=== PATIENT | male | born 1945 | race Caucasian/White ===

== ENCOUNTER 2017-05-07 11:06 | Emergency (ER) | payer OTHER, MEDICARE ==
[~2017-05-07] VITALS: Ht 180.3 cm; Wt 96.2 kg
[~2017-05-07 11:06] MED LIST: ALBU90OI6; ALBU90OI6 INH; AMIO200 PO; AMLO5 PO; ASPI325 PO; ASPI81CH; ASPI81CH PO; ATEN50 PO; Aspir 8181 MG PO; Augmentin 875-1 EACH PO; CARI350 PO; CLOP75 PO; DIAZ5 PO; ELIQUIS2.5 MG PO; FINA5 PO; FURO40 PO; HYDACE5 PO; HYDMOR2 PO; IBUP600 PO; IBUP800 PO; ISOMON20 PO; Isosorbide Mono60 MG PO; LACT10SY PO; LISI20 PO; LORA1 PO; LOSA25 PO; MECL25 PO; METO25ER PO; METO50 PO; MORP60ER; MORP60ER PO; NEBI10 PO; NITR.4SL SL; ONDA4ODT MM; OXYACE10 PO; POTCHL10ER PO; PRED20 PO; PREDNISONE PO; PROPRANOLOL; RANI150 PO; SIMV10 PO; SIMV40 PO; SUMA25 PO; VERA120 PO; VERA240ER PO; VERAPAMIL ER120 MG PO; XARELTO1 EACH PO; XARELTO20 MG PO; ZOLP5 PO
[2017-05-07 12:06] LABS: BASOPHILS ABSOLUTE AUTO 0.04 K/mm3 (0.00-0.23); BASOPHILS PERCENT AUTO 0 % (0-2); EOSINOPHILS ABSOLUTE AUTO 0.02 K/mm3 (0.00-0.68); EOSINOPHILS PERCENT AUTO 0 % (0-6); Hematocrit 43.3 % (37.0-53.0); Hemoglobin 14.3 g/dL (13.5-17.5); IMMATURE GRAN ABSOLUTE AUTO 0.02 K/mm3 (0.00-0.10); IMMATURE GRAN PERCENT AUTO 0 % (0-1); LYMPHOCYTES ABSOLUTE AUTO 1.23 K/mm3 (0.84-5.20); LYMPHOCYTES PERCENT AUTO 12 % (21-46); MONOCYTES ABSOLUTE AUTO 1.17 K/mm3 (0.16-1.47); MONOCYTES PERCENT AUTO 11 % (4-13); Mean Corpuscular HGB 30.4 pg (26.0-34.0); Mean Corpuscular Volume 92 fL (80-100); Mean Platelet Volume 10.6 fL (9.1-12.4); NEUTROPHILS ABSOLUTE AUTO 7.92 K/mm3 (1.96-9.15); NEUTROPHILS PERCENT AUTO 76 % (41-73); Platelet Count 142 K/mm3 (150-400); RDW Coefficient Variation 14.3 % (11.7-14.2); RDW Standard Deviation 48.8 fL (35.1-46.3)
[2017-05-07 12:12] LABS: Alanine Aminotransfer (ALT/SGP 25 U/L (12-78); Albumin, Blood 3.6 g/dL (3.4-5.0); Albumin/Globulin Ratio 0.8 (0.8-1.8); Alk Phos 95 U/L (50-136); Anion Gap 10 mmol/L (6-16); Aspartate Aminotrans (AST/SGOT 22 U/L (12-37); Blood Urea Nitrogen 22 mg/dL (8-24); Bun/Creatinine Ratio 15.5 (12.0-20.0); CO2, Blood 25 mmol/L (21-32); Calcium, Blood 8.9 mg/dL (8.5-10.1); Chloride, Blood 106 mmol/L (98-108); Creatinine, Blood 1.42 mg/dL (0.60-1.20); Globulin, Blood 4.6 g/dL (2.2-4.0); Glomerular Filtration Rate 52 (60-); Glucose, Blood 115 mg/dL (70-99); Potassium, Blood 3.9 mmol/L (3.5-5.5); Sodium, Blood 141 mmol/L (136-145); Total Protein, Blood 8.2 g/dL (6.4-8.2)
[2017-05-07] MEDS ORDERED: MORP60ER PO (12:23)
[2017-05-07 12:39] LABS: Source, Urine Clean Catch
[2017-05-07 12:46] LABS: Bilirubin, Urine Neg (Neg); Blood, Urine Neg (Neg); Glucose Qualitative, Urine Neg (Neg); Ketones, Urine Neg (Neg); Leukocyte Esterase, Urine Neg (Neg); Nitrite, Urine Neg (Neg); Protein, Urine 2+ (Neg); Specific Gravity, Urine 1.005 (1.003-1.022); Urobilinogen, Urine NORM (Normal)
[2017-05-07 12:50] LABS: Troponin I <0.015 ng/mL (0.000-0.040)
[2017-05-07 13:14] LABS: Appearance, Urine Clear (Clear); Color, Urine Pale Yellow (P-Yellow)
[2017-05-07 13:15] LABS: White Blood Cells, Urine 0-2 /hpf (0-5)
[2017-05-07 13:16] LABS: Bacteria Few /hpf; Squamous Epithelial Cells Not Seen /hpf (Few)
[2017-05-07] MEDS ORDERED: Norco 5-325 Ta1 EACH PO (14:03)
== END 2017-05-07 14:24 | disposition home or self-care (01) ==
LOC: ER 11:06
PROVIDERS: Emergency Medicine
DX: I50.9 Heart failure, unspecified (principal); R51 Headache; Z88.5 Allergy status to narcotic agent; Z91.030 Bee allergy status; Z88.8 Allergy status to other drugs, medicaments and biological substances; Z79.899 Other long term (current) drug therapy; Z79.82 Long term (current) use of aspirin; Z87.01 Personal history of pneumonia (recurrent); I48.91 Unspecified atrial fibrillation; Z87.891 Personal history of nicotine dependence
CPT/HCPCS: 36415; 70450; 71046; 80053; 81001; 83880; 84484; 85025; 93005; 93010; 99284

== ENCOUNTER 2018-06-08 19:11 | Inpatient (IN) | payer MEDICARE ==
[~2018-06-08] VITALS: Ht 180.3 cm; Wt 87.5 kg
[~2018-06-08 19:11] MED LIST changes: +Norco 5-325 Ta1 EACH PO
[2018-06-08 19:31] LABS: BASOPHILS ABSOLUTE AUTO 0.02 K/mm3 (0.00-0.23); BASOPHILS PERCENT AUTO 0 % (0-2); EOSINOPHILS ABSOLUTE AUTO 0.06 K/mm3 (0.00-0.68); EOSINOPHILS PERCENT AUTO 1 % (0-6); Hematocrit 48.6 % (37.0-53.0); Hemoglobin 16.1 g/dL (13.5-17.5); IMMATURE GRAN ABSOLUTE AUTO 0.02 K/mm3 (0.00-0.10); IMMATURE GRAN PERCENT AUTO 0 % (0-1); LYMPHOCYTES ABSOLUTE AUTO 1.74 K/mm3 (0.84-5.20); LYMPHOCYTES PERCENT AUTO 34 % (21-46); MONOCYTES ABSOLUTE AUTO 0.88 K/mm3 (0.16-1.47); MONOCYTES PERCENT AUTO 17 % (4-13); Mean Corpuscular HGB 30.8 pg (26.0-34.0); Mean Corpuscular HGB Conc 33.1 g/dL (31.5-36.5); Mean Corpuscular Volume 93 fL (80-100); Mean Platelet Volume 10.7 fL (9.1-12.4); NEUTROPHILS ABSOLUTE AUTO 2.37 K/mm3 (1.96-9.15); NEUTROPHILS PERCENT AUTO 47 % (41-73); Platelet Count 124 K/mm3 (150-400); RDW Coefficient Variation 13.9 % (11.7-14.2); RDW Standard Deviation 47.8 fL (35.1-46.3); Red Blood Cell Count 5.22 M/mm3 (4.30-5.90); White Blood Cell Count 5.09 K/mm3 (4.00-11.30)
[2018-06-08 19:44] LABS: International Normalized Ratio 1.03; Prothrombin Time Results 10.9 Sec (9.7-11.5)
[2018-06-08 19:56] LABS: Alanine Aminotransfer (ALT/SGP 29 U/L (12-78); Albumin/Globulin Ratio 0.8 (0.8-1.8); Alk Phos 86 U/L (50-136); Anion Gap 5 mmol/L (6-16); Aspartate Aminotrans (AST/SGOT 25 U/L (12-37); Bilirubin, Total 0.5 mg/dL (0.1-1.0); Blood Urea Nitrogen 36 mg/dL (8-24); CO2, Blood 27 mmol/L (21-32); Calcium, Blood 8.2 mg/dL (8.5-10.1); Chloride, Blood 108 mmol/L (98-108); Ethanol (Alcohol), Blood, Med <3 mg/dL; Glomerular Filtration Rate 40 (60-); Glucose, Blood 110 mg/dL (70-99); Potassium, Blood 4.6 mmol/L (3.5-5.5); Sodium, Blood 140 mmol/L (136-145)
[2018-06-08] MEDS ORDERED: ALBU90OI61 INH (21:05)
[2018-06-08] MEDS ORDERED: AMLO5 PO (21:07)
[2018-06-08] MEDS ORDERED: BENZ100A PO (21:08)
[2018-06-08] MEDS ORDERED: CARV6.25 PO (21:09)
[2018-06-08] MEDS ORDERED: CHOL10002 PO (21:10)
[2018-06-08] MEDS ORDERED: LOSA25 PO (21:11)
[2018-06-08] MEDS ORDERED: MORP15ER PO ×2 (21:12)
[2018-06-08] MEDS ORDERED: Zocor20 MG PO (21:14)
[2018-06-08] MEDS ORDERED: OSELTAMIVIR PHO30 MG PO (21:14)
[2018-06-08] MEDS ORDERED: SILD50TA PO (21:15)
[2018-06-08] MEDS ORDERED: ELIQUIS5 MG PO (21:29)
[2018-06-09 00:57] LABS: Influenza A Negative (NEGATIVE); Influenza B Negative (NEGATIVE)
--- NOTE | 2018-06-09 01:21 | NUR ---
06/08/18 0040 REPORT GIVEN TO ELENA PERRY, [facility]. PT TO BE TRANSFERRED JC. PT AND FAMILY NOTIFIED BY DR SAINI OF TRANSFER. DR JAMISON AT BEDSIDE AND NOTIFIED OF HYPERTENSION. "OKAY LONG IT IS LESS THAN 220 SYSTOLIC."
--- NOTE | 2018-06-09 01:25 | NUR ---
UNABLE TO LIFEFLIGHT OUT DUE TO WEATHER. PT IS BE TRANSFERED BY [facility] [address] SA[address].
--- NOTE | 2018-06-09 01:49 | NUR ---
CALLED [facility] TO REPORT PT LEFT BY [facility] AT 0150.
--- NOTE | 2018-06-09 02:52 | NUR ---
06/09/18 0150 PT STARTED ON HEPARIN AND CARDIZEM DRIP BY SHIVANI PERRY FROM ER. SEE MAR. [facility] HERE AND REPORT GIVEN. PT LEFT [facility] AT 0150. ALL BELONGINGS WITH HIM.
== END 2018-06-09 01:48 | disposition short-term general hospital (02) | DRG 65 ==
LOC: ER 19:11 → MEDS 21:45
PROVIDERS: Emergency Medicine; Nurse Practitioner Acute Care; ADMIT Internal Medicine
DX: I63.231 Cerebral infarction due to unspecified occlusion or stenosis of right carotid arteries (principal); I50.22 Chronic systolic (congestive) heart failure; Z87.891 Personal history of nicotine dependence; R40.2412 Glasgow coma scale score 13-15, at arrival to emergency department; R20.0 Anesthesia of skin; I48.2 Chronic atrial fibrillation; J44.9 Chronic obstructive pulmonary disease, unspecified; I25.10 Atherosclerotic heart disease of native coronary artery without angina pectoris; N40.0 Benign prostatic hyperplasia without lower urinary tract symptoms; Z85.51 Personal history of malignant neoplasm of bladder; K21.9 Gastro-esophageal reflux disease without esophagitis; F20.9 Schizophrenia, unspecified; J10.1 Influenza due to other identified influenza virus with other respiratory manifestations
CPT/HCPCS: 36415; 70450; 70496; 70498; 71045; 80053; 82947; 83880; 84145; 85025; 85610; 85730; 87804; 93005; 93010; 96360-59; 99285-25; G0480; J1644; J7030; J7050; Q9967

== ENCOUNTER 2018-06-21 13:17 | Observation (INO) | payer MEDICARE ==
[~2018-06-21] VITALS: Ht 180.3 cm; Wt 87.2 kg
[~2018-06-21 13:17] MED LIST changes: +ELIQUIS5 MG PO; -FINA5 PO; +MORP15ER PO; +OSELTAMIVIR PHO30 MG PO; +SILD50TA PO; +Zocor20 MG PO
[2018-06-21 14:17] LABS: BASOPHILS ABSOLUTE AUTO 0.06 K/mm3 (0.00-0.23); BASOPHILS PERCENT AUTO 1 % (0-2); EOSINOPHILS PERCENT AUTO 2 % (0-6); Hematocrit 38.6 % (37.0-53.0); Hemoglobin 12.4 g/dL (13.5-17.5); IMMATURE GRAN ABSOLUTE AUTO 0.03 K/mm3 (0.00-0.10); IMMATURE GRAN PERCENT AUTO 0 % (0-1); LYMPHOCYTES ABSOLUTE AUTO 1.23 K/mm3 (0.84-5.20); LYMPHOCYTES PERCENT AUTO 18 % (21-46); MONOCYTES ABSOLUTE AUTO 0.72 K/mm3 (0.16-1.47); MONOCYTES PERCENT AUTO 11 % (4-13); Mean Corpuscular HGB 30.5 pg (26.0-34.0); Mean Corpuscular HGB Conc 32.1 g/dL (31.5-36.5); Mean Corpuscular Volume 95 fL (80-100); Mean Platelet Volume 10.6 fL (9.1-12.4); NEUTROPHILS ABSOLUTE AUTO 4.53 K/mm3 (1.96-9.15); NEUTROPHILS PERCENT AUTO 68 % (41-73); Platelet Count 192 K/mm3 (150-400); RDW Coefficient Variation 13.3 % (11.7-14.2); RDW Standard Deviation 46.6 fL (35.1-46.3); Red Blood Cell Count 4.07 M/mm3 (4.30-5.90); White Blood Cell Count 6.67 K/mm3 (4.00-11.30)
[2018-06-21 14:22] LABS: Alanine Aminotransfer (ALT/SGP 29 U/L (12-78); Albumin, Blood 2.7 g/dL (3.4-5.0); Albumin/Globulin Ratio 0.6 (0.8-1.8); Alk Phos 124 U/L (50-136); Anion Gap 7 mmol/L (6-16); Aspartate Aminotrans (AST/SGOT 23 U/L (12-37); Bilirubin, Total 0.8 mg/dL (0.1-1.0); Blood Urea Nitrogen 18 mg/dL (8-24); Bun/Creatinine Ratio 13.4 (12.0-20.0); CO2, Blood 25 mmol/L (21-32); Calcium, Blood 8.7 mg/dL (8.5-10.1); Chloride, Blood 108 mmol/L (98-108); Creatinine, Blood 1.34 mg/dL (0.60-1.20); Globulin, Blood 4.5 g/dL (2.2-4.0); Glomerular Filtration Rate 56 (60-); Glucose, Blood 148 mg/dL (70-99); Potassium, Blood 4.1 mmol/L (3.5-5.5); Sodium, Blood 140 mmol/L (136-145); Total Protein, Blood 7.2 g/dL (6.4-8.2); Troponin I <0.015 ng/mL (0.000-0.040)
[2018-06-21 14:27] LABS: International Normalized Ratio 1.08; Prothrombin Time Results 11.4 Sec (9.7-11.5)
[2018-06-21] MEDS ORDERED: FINA5 PO (16:48)
[2018-06-21] MEDS ORDERED: ALBU90OI61 INH (16:52)
[2018-06-21] MEDS ORDERED: Amlodipine Bes2.5 MG PO (16:53)
[2018-06-21] MEDS ORDERED: GERI-HYDROLAC222 M1 TOP (16:54)
[2018-06-21] MEDS ORDERED: Aspirin EC325 MG PO (16:56)
[2018-06-21] MEDS ORDERED: ATOR40TA PO (16:57)
[2018-06-21] MEDS ORDERED: CARV6.25 PO (16:58)
[2018-06-21] MEDS ORDERED: CHOL10002 PO (16:58)
[2018-06-21] MEDS ORDERED: LOSA25 PO (16:59)
[2018-06-21] MEDS ORDERED: SILDENAFIL CIT100 MG PO (17:00)
[2018-06-21] MEDS ORDERED: MORP15ER PO (17:01)
[2018-06-21] MEDS ORDERED: BENZ100A PO (17:24)
[2018-06-21] MEDS ORDERED: CLOP75 PO (17:25)
[2018-06-21] MEDS ORDERED: SUCR1 PO (17:26)
[2018-06-21] MEDS ORDERED: ATEN50 PO (17:26)
[2018-06-21] MEDS ORDERED: Isosorbide Mono60 MG PO (17:27)
--- NOTE | 2018-06-21 17:32 | NUR ---
Initial Visit: Palliative Care Consult for Advanced Care Planning. Pt is A&Ox4 and reports 3/10 pain on the right side of his head. He reports at times the pain is unbearable. Pt denies dyspnea and anxiety at this time. Pt does report moderate dyspnea during coughing spells. Pt also reports intermittent nausea but denies currently. Pt's and daughter are present during visit. Engaged in therapeutic conversation regarding advanced care planning. Pt reports that he lives at home with his . He reports no gnosticism beliefs. Pt's daughter lives close by and he reports adequate support between his and daughter. Pt reports he has been feeling weak and has not been out of bed for the last week. He has been feeling dizzy and has ringing in his right ear. Encouraged Pt to discuss symptoms with Dr on a daily basis as long as they are occuring. Educated Pt and family on the importance of advanced care planning including have discussion with his PCP on a routine basis. Educated Pt and family on disease process of CHF, COPD, and kidney disease. Encouraged Pt to ask questions to PCP regarding his disease trajctory. Educated Pt and family on the importance of being proactive and knowing if and when a higher level of care needs to be considered. Educated Pt and family on advance directive. Pt and family report they will consider wishes and complete at a later date. No other concerns reported at this time. Pt being transfered to medical floor and this RN ended visit. Plan: Will F/U for disease management and symptom management. Will place social service consult. Pt marte benefit from home health. Pt at high risk for readmission due to multiple comorbidities. Pt may benefit from high risk readmission program for CHF and COPD.
[2018-06-22] MEDS ORDERED: LISI5 PO (14:16)
--- NOTE | 2018-06-22 15:56 | NUR ---
1555 PT DISHCARGED HOME VIA PERSONAL VEHICLE ACCOMPANIED AND DRIVEN BY . PT ESCORTED TO FACILITY ENTRANCE VIA W/C BY ENTERPRISE APPLICATION ANALYST. IV REMOVED. D/C PAPERWORK REVIEWED WITH PT AND COPY PROVIDED. NEW RX FAXED TO [facility] PER PT REQUEST. PT REPORTS L SIDED WEAKNESS IS AT BASELINE. HTN BETTER CONTROLLED TODAY. PT DENIES PAIN, SOB, N/V. NO NEW CHANGES.
== END 2018-06-22 17:03 | disposition home or self-care (01) ==
LOC: ER 13:17 → MEDS 13:18
PROVIDERS: Emergency Medicine; ADMIT Hospitalist
DX: I63.9 Cerebral infarction, unspecified (principal); I25.10 Atherosclerotic heart disease of native coronary artery without angina pectoris; I48.91 Unspecified atrial fibrillation; G89.29 Other chronic pain; I16.0 Hypertensive urgency; I13.0 Hypertensive heart and chronic kidney disease with heart failure and stage 1 through stage 4 chronic kidney disease, or unspecified chronic kidney disease; N18.3 Chronic kidney disease, stage 3 (moderate); I50.22 Chronic systolic (congestive) heart failure; J44.9 Chronic obstructive pulmonary disease, unspecified; F20.9 Schizophrenia, unspecified; K21.9 Gastro-esophageal reflux disease without esophagitis; Z87.891 Personal history of nicotine dependence; Z79.899 Other long term (current) drug therapy; Z88.5 Allergy status to narcotic agent; Z88.8 Allergy status to other drugs, medicaments and biological substances
CPT/HCPCS: 36415; 70450; 70496; 80053; 83036; 84484; 85025; 85610; 85730; 93005; 93010; 96374-59; 97116; 97162; 97165; 97530; 99285-25; G0378; J0360; Q9967

== ENCOUNTER 2018-10-04 09:47 | Day surgery (SDC) | payer OTHER, MEDICARE ==
[~2018-10-04] VITALS: Ht 180.3 cm; Wt 93.0 kg
[~2018-10-04 09:47] MED LIST changes: +ALBU90OI61 INH; +ATOR40TA PO; +Amlodipine Bes2.5 MG PO; +Aspirin EC81 MG PO; +BENZ100A PO; +CARV6.25 PO; +CHOL10002 PO; +FINA5 PO; +GERI-HYDROLAC222 M1 TOP; +LISI5 PO; +SILDENAFIL CIT100 MG PO; +SUCR1 PO
[2018-10-04] MEDS ORDERED: ISOMON20 (10:17)
[2018-10-04] MEDS ORDERED: RANO500T PO (10:18)
[2018-10-04] MEDS ORDERED: AMLO5 (10:44)
[2018-10-04] MEDS ORDERED: NITR.4SL (10:45)
[2018-10-04] MEDS ORDERED: PANT40 PO (14:12)
--- NOTE | 2018-10-04 16:37 | NUR ---
SHIFT SUMMARY 1330 PT ARRIVED FROM [facility]. ALERT AND ORIENTED X3. DENIES PAIN THROUGHOUT THE SHIFT. RIGHT WRIST SOFT, NO BLEED OR HEMATOMA, TR BAND AND ARMBOARD CDI. VSS, SLIGHT HYPERTENSION NOTED. WILL CONTINUE TO MONITOR. FAMILY AT BEDSIDE.
--- NOTE | 2018-10-04 19:30 | NUR ---
ASSUMED CARE PT CARE ASSUMED AT APPROX 1930. PT IS AOX4, VSS. R RADIAL SITE WITH TR BAND IN PLACE AND CURRENTLY INFLATED WITH 6 CC OF AIR. SCANT AMOUNT OF DRY, RED DRAINAGE NOTED UNDER BAND. NO BRUISING, HEMATOMA, OR SWELLING NOTED TO AREA, PT DENIES PAIN ON PALPATION OF FOREARM. PT DENIES CHEST PAIN OR DYSPNEA. REPORTS FEELING MUCH BETTER THIS EVENING. BED IN LOWEST POSITION, CALL LIGHT IN REACH. WILL CONTINUE WITH MONITORING.
--- NOTE | 2018-10-05 06:54 | NUR ---
SHIFT SUMMARY PT HAS REMAINED AOX4 THROUHGOUT SHIFT. VSS. PLEASANT AND COOPERATIVE WITH CARE. PT HAS RESTED THROUGHOUT MUCH OF THE NIGHT. NO CHANGES NOTED TO R RADIAL SITE. PT DENIES CHEST PAIN AND DYSPNEA. PT REMAINS INDEPENDENT IN ROOM. EDUCATION PROVIDED ON POST PROCEDURE CARE OF R FOREARM AND ARM BOARD USAGE. NO OTHER CHANGES NOTED FROM INITIAL ASSESSMENT. WILL CONTINUE TO MONITOR AND REPORT TO ONCOMING SHIFT. BED IN LOW POSITION. CALL LIGHT IN REACH.
--- NOTE | 2018-10-05 09:30 | NUR ---
AM NOTE. ASSUMED CARE OF PT APROX 0700, PT IS A&Ox4 AND IND IN THE ROOM. PT IS S/P ANGIO WITH STENT PLACEMENT. PT DENIES CP OR SOB AT THIS TIME. RIGHT WRIST SITE IS C/D/I. VS STABLE.
--- NOTE | 2018-10-05 10:02 | NUR ---
PT D/C. PT WAS D/C'D HOME WITH ALL BELONGINGS. D/C EDUCATION AND INSTRUCTION WERE GIVEN TO THE PT AND HIS . NO NEW MEDICATIONS WERE ORDERED FOR THIS PT. PT'S RIGHT WRIST SITE WAS C/D/I, NO SWELLING, REDNESS OR HEMATOMA NOTED. PT DENIED CHEST PAIN/PRESSURE, N/V OR SOB. PT REFUSED W/C ESCORT OUT. PT'S IV WAS D/C'D WNL.
== END 2018-10-05 10:03 | disposition home or self-care (01) ==
LOC: MHTC 09:47 → PCU 13:00 → MHTC 13:31 → PCU 13:31 → MHTC 10-05 10:03 → PCU 10-05 10:03
PROC: 4A023N7 Measurement of Cardiac Sampling and Pressure, Left Heart, Percutaneous Approach (ICD-10-PCS; principal; 2018-10-04)
PROC: 027034Z Dilation of Coronary Artery, One Artery with Drug-eluting Intraluminal Device, Percutaneous Approach (ICD-10-PCS; principal; 2018-10-04)
PROC: B2111ZZ Fluoroscopy of Multiple Coronary Arteries using Low Osmolar Contrast (ICD-10-PCS; principal; 2018-10-04)
PROC: B240ZZ3 Ultrasonography of Single Coronary Artery, Intravascular (ICD-10-PCS; principal; 2018-10-04)
DX: I25.10 Atherosclerotic heart disease of native coronary artery without angina pectoris (principal); I48.1 Persistent atrial fibrillation; I69.354 Hemiplegia and hemiparesis following cerebral infarction affecting left non-dominant side; I10 Essential (primary) hypertension; J44.9 Chronic obstructive pulmonary disease, unspecified; E78.5 Hyperlipidemia, unspecified; I87.2 Venous insufficiency (chronic) (peripheral); C67.9 Malignant neoplasm of bladder, unspecified; I12.9 Hypertensive chronic kidney disease with stage 1 through stage 4 chronic kidney disease, or unspecified chronic kidney disease; N18.9 Chronic kidney disease, unspecified; M19.90 Unspecified osteoarthritis, unspecified site; Z95.5 Presence of coronary angioplasty implant and graft; Z79.899 Other long term (current) drug therapy; Z79.82 Long term (current) use of aspirin; Z87.891 Personal history of nicotine dependence; Z88.5 Allergy status to narcotic agent; Z88.8 Allergy status to other drugs, medicaments and biological substances
CPT/HCPCS: 85347; 92921; 92978; 93458; 94760; 99152; 99153; C1725; C1753; C1769; C1874; C1887; C1894; C9600; J1644; J2250; J3010; J7030; Q9967

== ENCOUNTER 2019-01-05 12:34 | Inpatient (IN) | payer OTHER, MEDICARE ==
[~2019-01-05] VITALS: Ht 180.3 cm; Wt 87.5 kg
[~2019-01-05 12:34] MED LIST changes: +AMLO5; +ISOMON20; +PANT40 PO; +RANO500T PO
[2019-01-05 13:02] LABS: BASOPHILS ABSOLUTE AUTO 0.04 K/mm3 (0.00-0.23); BASOPHILS PERCENT AUTO 1 % (0-2); EOSINOPHILS PERCENT AUTO 3 % (0-6); Hematocrit 44.2 % (37.0-53.0); Hemoglobin 14.4 g/dL (13.5-17.5); IMMATURE GRAN ABSOLUTE AUTO 0.03 K/mm3 (0.00-0.10); IMMATURE GRAN PERCENT AUTO 0 % (0-1); LYMPHOCYTES ABSOLUTE AUTO 1.04 K/mm3 (0.84-5.20); LYMPHOCYTES PERCENT AUTO 15 % (21-46); MONOCYTES ABSOLUTE AUTO 0.81 K/mm3 (0.16-1.47); MONOCYTES PERCENT AUTO 12 % (4-13); Mean Corpuscular HGB Conc 32.6 g/dL (31.5-36.5); Mean Corpuscular Volume 92 fL (80-100); Mean Platelet Volume 10.6 fL (9.1-12.4); NEUTROPHILS ABSOLUTE AUTO 4.75 K/mm3 (1.96-9.15); NEUTROPHILS PERCENT AUTO 69 % (41-73); Platelet Count 156 K/mm3 (150-400); RDW Coefficient Variation 14.9 % (11.7-14.2); RDW Standard Deviation 50.8 fL (35.1-46.3); White Blood Cell Count 6.87 K/mm3 (4.00-11.30)
[2019-01-05 13:13] LABS: Alanine Aminotransfer (ALT/SGP 36 U/L (12-78); Albumin, Blood 2.9 g/dL (3.4-5.0); Albumin/Globulin Ratio 0.6 (0.8-1.8); Alk Phos 103 U/L (50-136); Anion Gap 7 mmol/L (6-16); Aspartate Aminotrans (AST/SGOT 22 U/L (12-37); Bilirubin, Total 0.8 mg/dL (0.1-1.0); Blood Urea Nitrogen 24 mg/dL (8-24); CO2, Blood 26 mmol/L (21-32); Calcium, Blood 9.1 mg/dL (8.5-10.1); Chloride, Blood 107 mmol/L (98-108); Ethanol (Alcohol), Blood, Med <3 mg/dL; Globulin, Blood 4.5 g/dL (2.2-4.0); Glomerular Filtration Rate 49 (60-); Glucose, Blood 159 mg/dL (70-99); Potassium, Blood 4.1 mmol/L (3.5-5.5); Sodium, Blood 140 mmol/L (136-145); Total Protein, Blood 7.4 g/dL (6.4-8.2)
[2019-01-05 13:24] LABS: International Normalized Ratio 1.07; Prothrombin Time Results 11.3 Sec (9.7-11.5)
--- NOTE | 2019-01-05 19:55 | NUR ---
ADMIT NOTED AND SHIFT SUMMARY RECEIVED REPORT FROM VICKY JOY IN ED. PT TO ROOM VIA GURNEY, TRANSFERED TO BED WITH 2 PERSON ASSIST, LEFT LEG WEAKNESS NOTED ON STANDING. PT ORIENTED TO ROOM AND CALL LIGHT. PT EDUCATED ON FALL RISK AND USE OF BED ALARM. PT STATES PT STARTED HAVING TINGLING IN LEFT ARM AND LEG, PT REPORTS FEELING A PRESSURE ON LEFT SHOULD AND APPROX 10 MINUTES LATER HAVING A HEADACHE. PT A&Ox3, CALM AND COOPERATIVE WITH CARE. LEFT SIDE WEAKNESS NOTED IN PIER WORKER, MOVEMENT AND EXTENSION AND FLEXION. PT UNABLE TO LIFT LEFT LEG/ARM. DELAYED RESPONSE. PERRWILTON, 3CM. PT REPORTS HEADACHE 4/10 ON PAIN SCALE AFTER RECEIVING TYLENOL IN ED. PT DENIES NASUEA, REQUESTING FOOD, PT AND FAMILY EDUCATED ON NPO STATUS UNTIL SPEECH THERAPY EVAL COMPLETED. PT REPORT THAT ON 12/31/18 HE HAD BLADDER CANCER SURGERY AND IT IS PAINFUL TO VOID AND UP UNTIL YESTERDAY HAS HAD BLOOD IN URINE. PLANS TO HAVE MRI ONCE WE RECEIVE STENT INFO FROM [facility]. NO CHANGES IN NEURO EVALUATION SINCE ADMISSION. BP ELEVATED, MEDICATED WITH PRN HYDRALAZINE PER ORDERS. OTHER VSS. NO OTHER ACUTE CHANGES NOTED. REPORT GIVEN TO ONCOMING RN.
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
[2019-01-06 04:10] LABS: BASOPHILS ABSOLUTE AUTO 0.04 K/mm3 (0.00-0.23); BASOPHILS PERCENT AUTO 1 % (0-2); EOSINOPHILS ABSOLUTE AUTO 0.25 K/mm3 (0.00-0.68); EOSINOPHILS PERCENT AUTO 3 % (0-6); Hematocrit 42.3 % (37.0-53.0); Hemoglobin 13.7 g/dL (13.5-17.5); IMMATURE GRAN ABSOLUTE AUTO 0.04 K/mm3 (0.00-0.10); IMMATURE GRAN PERCENT AUTO 1 % (0-1); LYMPHOCYTES ABSOLUTE AUTO 1.43 K/mm3 (0.84-5.20); LYMPHOCYTES PERCENT AUTO 16 % (21-46); MONOCYTES ABSOLUTE AUTO 1.05 K/mm3 (0.16-1.47); MONOCYTES PERCENT AUTO 12 % (4-13); Mean Corpuscular HGB 30.2 pg (26.0-34.0); Mean Corpuscular HGB Conc 32.4 g/dL (31.5-36.5); Mean Corpuscular Volume 93 fL (80-100); Mean Platelet Volume 10.5 fL (9.1-12.4); NEUTROPHILS ABSOLUTE AUTO 5.94 K/mm3 (1.96-9.15); NEUTROPHILS PERCENT AUTO 68 % (41-73); Platelet Count 156 K/mm3 (150-400); RDW Coefficient Variation 15.1 % (11.7-14.2); RDW Standard Deviation 51.9 fL (35.1-46.3); Red Blood Cell Count 4.53 M/mm3 (4.30-5.90); White Blood Cell Count 8.75 K/mm3 (4.00-11.30)
[2019-01-06 04:25] LABS: Calcium, Blood 8.9 mg/dL (8.5-10.1); Creatinine, Blood 1.65 mg/dL (0.60-1.20); Magnesium, Blood 1.9 mg/dL (1.6-2.4); Phosphorus, Blood 3.7 mg/dL (2.5-4.9); Potassium, Blood 4.1 mmol/L (3.5-5.5)
--- NOTE | 2019-01-06 06:25 | NUR ---
PATIENT SLEPT ABOUT EIGHT HOURS LAST NIGHT; PATIENT STRENGTH IN LEFT SIDE; ABLE TO BEAVER TRAPPER FINGERS AND MOVE LEFT ARM MORE; PATIENT REPORTS TO BRING IN HOME MEDICATION LIST. SBP 110'S TO 140'S. NO OTHER CHANGES TO REPORT. WILL CONTINUE TO MONITOR AND ASSESS UNTIL END OF SHIFT.
--- NOTE | 2019-01-06 09:06 | NUR ---
SWALLOW & ST: DR MEDINA AT BEDSIDE DISCUSSED SPEECH THERAPY ORDER. DR MEDINA ORDERED SPEECH THERAPY FOR A SPEECH AND LANGUAGE EVALUATION NOT SWALLOW EVALUATION. VERBAL ORDER TO DO BEDSIDE SWALLOW EVAL BY THIS RN. CALLED SPEECH THERAPY STATES TO LEAVE SPEECH THERAPY ORDER IN AND WILL EVALUATE SPEECH AND LANGUAGE WHEN AVAILABLE. PT PASSED SWALLOW EVAL WITH NO ISSUES. WAS ABLE TO SPEAK WITHOUT HAVING A WET SOUNDING VOICE, DID NOT COUGH OR CHOKE AFTER ANY ADMINISTRATION OF WATER. DIET ORDER PLACED AND SWALLOW ORDERSET PLACED.
--- NOTE | 2019-01-06 10:17 | NUR ---
ST & SWALLOW: DISCUSSED PT WITH SPEECH THERAPY JAMAL. PT IS NOT IN NEED OF ASPIRATION PERCAUTIONS PT SCORED HIGHER THAN MOST WITH HIS SPEECH EVALUATION AND PT IS NOTED TO BE SWALLOWING FINE. DISCONTINUED ASPIRATION PERCAUTION, AND OTHER SWALLOW EVALUATION ORDERS.
--- NOTE | 2019-01-06 11:19 | NUR ---
Spiritual care visit conducted. Patient is sitting on the edge of the bed and alert. 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 Patient has theological questions and also discusses and dying. I listen empathically, conduct a life review, explore patient's belief system, reinforce helpful attitudes and practices and provide companionship and prayer. Patient responds well and shows signs of an elevated mood. I will continue to remain available to patient and family.
--- NOTE | 2019-01-06 16:54 | NUR ---
The pt states that he is getting more sensation in his extremities, and more ability to use his left side. Stent information received from [facility]; it was sent to imaging dept which will be assessed by the pharmacy laboratory technician in the morning to determine if an MRI will be possible 01/07/19.
--- NOTE | 2019-01-06 21:23 | NUR ---
ASSUMED CARE OF PATIENT AT APPROXIMATELY 1900 FROM JUNIOR Esparza RN. PATIENT ALERT AND ORIENTED X4; WEAKNESS TO LEFT ARM AND LEFT LEG; IMPROVED COMPARED TO ADMIT NIGHT; GOOD APICULTURIST BILAT; PATIENT TALKING CLEARLY; SEE ASSESSMENT FOR NEURO EXAM. PATIENT REPORTS NUMBNESS AND TINGLING IN LEFT ARM; PATIENT REPORTS DELAYED SENSATION TO TOUCH AND ARM FEELS HEAVY AND COLD. PERRLA. PATIENT DENIES DIZZINESS AND NAUSEA. URINATES INTO URINAL. AFIB W/ BBB ON TELE; OXYGEN SATURATION ABOVE 90% ON ROOM AIR. PATIENT HAD MULTIPLE FAMILY MEMBERS VISIT. PATIENT CURRENTLY RESTING IN BED; CALL LIGHT IN REACH; BED IN LOWEST POSISTION; BED ALARM ON; WILL CONTINUE TO MONITOR AND ASSESS UTNIL END OF SHIFT.
[2019-01-07 04:50] LABS: BASOPHILS ABSOLUTE AUTO 0.07 K/mm3 (0.00-0.23); BASOPHILS PERCENT AUTO 1 % (0-2); EOSINOPHILS ABSOLUTE AUTO 0.23 K/mm3 (0.00-0.68); EOSINOPHILS PERCENT AUTO 3 % (0-6); Hematocrit 43.4 % (37.0-53.0); IMMATURE GRAN ABSOLUTE AUTO 0.03 K/mm3 (0.00-0.10); IMMATURE GRAN PERCENT AUTO 0 % (0-1); LYMPHOCYTES ABSOLUTE AUTO 1.62 K/mm3 (0.84-5.20); LYMPHOCYTES PERCENT AUTO 21 % (21-46); MONOCYTES ABSOLUTE AUTO 1.21 K/mm3 (0.16-1.47); MONOCYTES PERCENT AUTO 16 % (4-13); Mean Corpuscular HGB 30.4 pg (26.0-34.0); Mean Corpuscular HGB Conc 32.3 g/dL (31.5-36.5); Mean Corpuscular Volume 94 fL (80-100); Mean Platelet Volume 10.4 fL (9.1-12.4); NEUTROPHILS ABSOLUTE AUTO 4.62 K/mm3 (1.96-9.15); NEUTROPHILS PERCENT AUTO 59 % (41-73); Platelet Count 165 K/mm3 (150-400); RDW Coefficient Variation 15.3 % (11.7-14.2); RDW Standard Deviation 53.2 fL (35.1-46.3); Red Blood Cell Count 4.61 M/mm3 (4.30-5.90); White Blood Cell Count 7.78 K/mm3 (4.00-11.30)
[2019-01-07 05:09] LABS: Bun/Creatinine Ratio 17.1 (12.0-20.0); Calcium, Blood 8.3 mg/dL (8.5-10.1); Creatinine, Blood 1.81 mg/dL (0.60-1.20); Magnesium, Blood 1.9 mg/dL (1.6-2.4); Potassium, Blood 3.9 mmol/L (3.5-5.5)
--- NOTE | 2019-01-07 06:24 | NUR ---
PATIENT SLEPT ABOUT NINE HOURS LAST NIGHT. VSS. NO ACUTE CHANGES TO REPORT. WILL CONTINUE TO MONITOR AND ASSESS UNTIL END OF SHIFT.
--- NOTE | 2019-01-07 08:00 | NUR ---
PT QUITE PLEASANT COOP A/O TALKATIVE. DENIES PAIN. LEFT SIDE WEAKNESS. ARMS, HANDS, FEET, LEGS. PT STATES BETTER THAN YEST. GRADUAL IMPROVEMENT. STATES WANTS TO GO HOME SOON. H/R REG, NO MURMER NOTED. PER TELE AFIB RATE 60-70. LUNGS CLEAR, RESP EASY, UNLABORED. ON R.A. BT X4 LAST BM 2 DAYS. VOIDS PER URINAL AND 1 ASST WITH FWW TO BATHROOM. BED IN LOW POSITION,C ALL LITE IN REACH, CALLS APPROP
--- NOTE | 2019-01-07 17:35 | NUR ---
PT PLEASANT TODAY. WORKED WITH PT WALKING TODAY. DENIES PAIN, LEFT STILL WEAK. PLEASED WITH HOW THERAPY DID TODAY. EAGER TO WORK MORE. IN TO SEE THIS KESHIA. NO OTHER CONCERNS AT THIS TIME. BED IN LOW POSITION, CALL LITE IN REACH, CALLS APPROP
[2019-01-08 06:19] LABS: BASOPHILS ABSOLUTE AUTO 0.06 K/mm3 (0.00-0.23); BASOPHILS PERCENT AUTO 1 % (0-2); EOSINOPHILS ABSOLUTE AUTO 0.26 K/mm3 (0.00-0.68); EOSINOPHILS PERCENT AUTO 3 % (0-6); Hematocrit 44.7 % (37.0-53.0); IMMATURE GRAN ABSOLUTE AUTO 0.04 K/mm3 (0.00-0.10); IMMATURE GRAN PERCENT AUTO 1 % (0-1); LYMPHOCYTES ABSOLUTE AUTO 1.81 K/mm3 (0.84-5.20); LYMPHOCYTES PERCENT AUTO 21 % (21-46); MONOCYTES ABSOLUTE AUTO 1.27 K/mm3 (0.16-1.47); MONOCYTES PERCENT AUTO 15 % (4-13); Mean Corpuscular HGB 29.5 pg (26.0-34.0); Mean Corpuscular HGB Conc 31.3 g/dL (31.5-36.5); Mean Corpuscular Volume 94 fL (80-100); Mean Platelet Volume 10.3 fL (9.1-12.4); NEUTROPHILS ABSOLUTE AUTO 5.05 K/mm3 (1.96-9.15); NEUTROPHILS PERCENT AUTO 59 % (41-73); Platelet Count 150 K/mm3 (150-400); RDW Coefficient Variation 15.3 % (11.7-14.2); RDW Standard Deviation 53.6 fL (35.1-46.3); Red Blood Cell Count 4.74 M/mm3 (4.30-5.90); White Blood Cell Count 8.49 K/mm3 (4.00-11.30)
[2019-01-08 06:37] LABS: Albumin, Blood 2.7 g/dL (3.4-5.0); Anion Gap 5 mmol/L (6-16); Blood Urea Nitrogen 33 mg/dL (8-24); Bun/Creatinine Ratio 21.2 (12.0-20.0); CHOL/HDL RATIO 3.1; CO2, Blood 26 mmol/L (21-32); Calcium, Blood 8.4 mg/dL (8.5-10.1); Chloride, Blood 113 mmol/L (98-108); Cholesterol 165 mg/dL (50-200); Creatinine, Blood 1.56 mg/dL (0.60-1.20); Glomerular Filtration Rate 47 (60-); Glucose, Blood 94 mg/dL (70-99); HDL Cholesterol 54 mg/dL (>39); LDL/HDL RATIO 1.7; Low Density Lipoprotein Chol 90 mg/dL (0-110); Phosphorus, Blood 3.1 mg/dL (2.5-4.9); Potassium, Blood 4.3 mmol/L (3.5-5.5); Sodium, Blood 144 mmol/L (136-145); Triglycerides 106 mg/dL (30-160); Very Low Density Lipoprot Chol 21 mg/dL (6-32)
--- NOTE | 2019-01-08 07:40 | NUR ---
no acute changes to report. patient was AO4 this shift, no complaints of pain. SBA to BRP. content and cooperative with care. his deficits have all but resolved.
--- NOTE | 2019-01-08 14:52 | NUR ---
DISCHARGE SUMMARY PT A&Ox4, CALM AND COOPERATIVE WITH CARE. PT MOVING IN ROOM IND, STEADY GAIT NOTED. LEFT SIDED WEAKNESS, TINGLING AND DELAYED RESPONSES IMPROVED SINCE ADMISSION. PT DENIES PAIN, SOB AND NAUSEA. BREATHING EVEN AND UNLABORED. VSS. NO OTHER ACUTE CHANGES NOTED DURING SHIFT. PT AND FAMILY EDUCATED ON DISCHARGE INSTRUCTIONS, MEDICATIONS AND FOLLOW UP APPOINTMENTS. PT LEFT VIA WHEELCHAIR AT 1330. PT STABLE UPON DISCHARGE.
[2019-01-10] MEDS ORDERED: ATEN25 (13:40)
== END 2019-01-08 13:52 | disposition home or self-care (01) | DRG 69 ==
LOC: ER 12:34 → PCU 16:29
PROVIDERS: Emergency Medicine; ADMIT Internal Medicine
DX: G45.9 Transient cerebral ischemic attack, unspecified (principal); I13.0 Hypertensive heart and chronic kidney disease with heart failure and stage 1 through stage 4 chronic kidney disease, or unspecified chronic kidney disease; Q89.8 Other specified congenital malformations; I50.32 Chronic diastolic (congestive) heart failure; N40.0 Benign prostatic hyperplasia without lower urinary tract symptoms; G43.909 Migraine, unspecified, not intractable, without status migrainosus; J44.9 Chronic obstructive pulmonary disease, unspecified; I25.10 Atherosclerotic heart disease of native coronary artery without angina pectoris; F20.9 Schizophrenia, unspecified; F43.10 Post-traumatic stress disorder, unspecified; F17.200 Nicotine dependence, unspecified, uncomplicated; I65.22 Occlusion and stenosis of left carotid artery; R47.81 Slurred speech; I67.9 Cerebrovascular disease, unspecified; C67.9 Malignant neoplasm of bladder, unspecified; I73.9 Peripheral vascular disease, unspecified; G89.29 Other chronic pain; M54.9 Dorsalgia, unspecified
CPT/HCPCS: 36415; 70450; 70496; 70498; 70551; 71045; 80048; 80053; 80061; 80069; 83735; 84100; 84484; 85025; 85610; 90686; 92523; 93005; 93010; 93306; 97110; 97112; 97116; 97162; 97166; 97530; 97535; 99285-25; C9113; G0480; J0360; J2060; J7030; Q9967

== ENCOUNTER 2019-08-21 16:10 | Emergency (ER) | payer OTHER ==
[~2019-08-21] VITALS: Ht 180.3 cm; Wt 95.2 kg
[~2019-08-21 16:10] MED LIST changes: +ATEN25
[2019-08-21 16:30] LABS: BASOPHILS ABSOLUTE AUTO 0.05 K/mm3 (0.00-0.23); BASOPHILS PERCENT AUTO 1 % (0-2); EOSINOPHILS ABSOLUTE AUTO 0.11 K/mm3 (0.00-0.68); EOSINOPHILS PERCENT AUTO 2 % (0-6); Hematocrit 41.8 % (37.0-53.0); Hemoglobin 13.8 g/dL (13.5-17.5); IMMATURE GRAN ABSOLUTE AUTO 0.02 K/mm3 (0.00-0.10); IMMATURE GRAN PERCENT AUTO 0 % (0-1); LYMPHOCYTES ABSOLUTE AUTO 1.28 K/mm3 (0.84-5.20); LYMPHOCYTES PERCENT AUTO 17 % (21-46); MONOCYTES ABSOLUTE AUTO 1.22 K/mm3 (0.16-1.47); MONOCYTES PERCENT AUTO 16 % (4-13); Mean Corpuscular HGB 30.5 pg (26.0-34.0); Mean Corpuscular Volume 93 fL (80-100); Mean Platelet Volume 10.6 fL (9.1-12.4); NEUTROPHILS ABSOLUTE AUTO 4.79 K/mm3 (1.96-9.15); NEUTROPHILS PERCENT AUTO 64 % (41-73); Platelet Count 161 K/mm3 (150-400); RDW Coefficient Variation 13.4 % (11.7-14.2); RDW Standard Deviation 46.2 fL (35.1-46.3); Red Blood Cell Count 4.52 M/mm3 (4.30-5.90); White Blood Cell Count 7.47 K/mm3 (4.00-11.30)
[2019-08-21 16:46] LABS: Troponin I <0.015 ng/mL (0.000-0.040)
[2019-08-21 16:47] LABS: Anion Gap 7 mmol/L (6-16); Blood Urea Nitrogen 27 mg/dL (8-24); Bun/Creatinine Ratio 14.6 (12.0-20.0); CO2, Blood 23 mmol/L (21-32); Calcium, Blood 7.9 mg/dL (8.5-10.1); Chloride, Blood 109 mmol/L (98-108); Creatinine, Blood 1.85 mg/dL (0.60-1.20); Glomerular Filtration Rate 38 (60-); Glucose, Blood 106 mg/dL (70-99); Potassium, Blood 4.1 mmol/L (3.5-5.5); Sodium, Blood 139 mmol/L (136-145)
[2019-08-21] MEDS ORDERED: ELIQUIS5 MG PO (17:19)
[2019-08-21] MEDS ORDERED: OXYC5 PO (17:20)
[2019-08-21] MEDS ORDERED: TRAZ50 PO (17:20)
[2019-08-21] MEDS ORDERED: RANO500T PO (17:20)
[2019-08-21] MEDS ORDERED: ATEN25 PO (17:20)
[2019-08-21] MEDS ORDERED: NARCAN4 M1 (17:21)
[2019-08-21] MEDS ORDERED: TAMS.4ER PO (17:21)
== END 2019-08-21 19:07 | disposition home or self-care (01) ==
LOC: ER 16:10
PROVIDERS: Student in an Organized Health Care Education/Training Program
DX: I95.1 Orthostatic hypotension (principal); I13.0 Hypertensive heart and chronic kidney disease with heart failure and stage 1 through stage 4 chronic kidney disease, or unspecified chronic kidney disease; I50.22 Chronic systolic (congestive) heart failure; N18.9 Chronic kidney disease, unspecified; N40.0 Benign prostatic hyperplasia without lower urinary tract symptoms; G43.909 Migraine, unspecified, not intractable, without status migrainosus; J44.9 Chronic obstructive pulmonary disease, unspecified; I25.10 Atherosclerotic heart disease of native coronary artery without angina pectoris; I48.20 Chronic atrial fibrillation, unspecified; K21.9 Gastro-esophageal reflux disease without esophagitis; F17.200 Nicotine dependence, unspecified, uncomplicated; Z91.030 Bee allergy status; Z88.5 Allergy status to narcotic agent; Z88.8 Allergy status to other drugs, medicaments and biological substances; Z79.899 Other long term (current) drug therapy; Z79.01 Long term (current) use of anticoagulants; Z79.02 Long term (current) use of antithrombotics/antiplatelets
CPT/HCPCS: 71045; 80048; 84484; 85025; 93005; 93010; 96361; 96374; 99285-25; A9270; J2405; J7030

== ENCOUNTER 2019-11-12 13:58 | Emergency (ER) | payer OTHER ==
[~2019-11-12] VITALS: Ht 180.3 cm; Wt 95.2 kg
[~2019-11-12 13:58] MED LIST changes: +ATEN25 PO; +NARCAN4 M1; +OXYC5 PO; +TAMS.4ER PO; +TRAZ50 PO
== END 2019-11-12 14:46 | disposition left against medical advice (07) ==
LOC: ER 13:58
DX: Z53.21 Procedure and treatment not carried out due to patient leaving prior to being seen by health care provider (principal)

== ENCOUNTER 2020-04-18 15:52 | Emergency (ER) | payer OTHER ==
[~2020-04-18] VITALS: Ht 180.3 cm; Wt 90.7 kg
[2020-04-18 16:24] LABS: BASOPHILS ABSOLUTE AUTO 0.05 K/mm3 (0.00-0.23); BASOPHILS PERCENT AUTO 1 % (0-2); EOSINOPHILS ABSOLUTE AUTO 0.09 K/mm3 (0.00-0.68); EOSINOPHILS PERCENT AUTO 1 % (0-6); Hematocrit 44.7 % (37.0-53.0); Hemoglobin 14.7 g/dL (13.5-17.5); IMMATURE GRAN ABSOLUTE AUTO 0.02 K/mm3 (0.00-0.10); IMMATURE GRAN PERCENT AUTO 0 % (0-1); LYMPHOCYTES ABSOLUTE AUTO 0.79 K/mm3 (0.84-5.20); LYMPHOCYTES PERCENT AUTO 10 % (21-46); MONOCYTES ABSOLUTE AUTO 1.28 K/mm3 (0.16-1.47); MONOCYTES PERCENT AUTO 16 % (4-13); Mean Corpuscular HGB 29.6 pg (26.0-34.0); Mean Corpuscular HGB Conc 32.9 g/dL (31.5-36.5); Mean Corpuscular Volume 90 fL (80-100); Mean Platelet Volume 10.3 fL (9.1-12.4); NEUTROPHILS ABSOLUTE AUTO 6.01 K/mm3 (1.96-9.15); NEUTROPHILS PERCENT AUTO 73 % (41-73); Platelet Count 137 K/mm3 (150-400); RDW Coefficient Variation 14.6 % (11.7-14.2); RDW Standard Deviation 48.5 fL (35.1-46.3); Red Blood Cell Count 4.97 M/mm3 (4.30-5.90); White Blood Cell Count 8.24 K/mm3 (4.00-11.30)
[2020-04-18 16:46] LABS: Albumin, Blood 3.2 g/dL (3.4-5.0); Albumin/Globulin Ratio 0.7 (0.8-1.8); Bilirubin, Total 0.9 mg/dL (0.1-1.0); Bun/Creatinine Ratio 16.4 (12.0-20.0); Calcium, Blood 8.5 mg/dL (8.5-10.1); Creatinine, Blood 1.46 mg/dL (0.60-1.20); Globulin, Blood 4.4 g/dL (2.2-4.0); Potassium, Blood 4.1 mmol/L (3.5-5.5); Total Protein, Blood 7.6 g/dL (6.4-8.2)
[2020-06-08] MEDS ORDERED: ATOR40TA PO (13:58)
[2020-06-08] MEDS ORDERED: CLOP75 PO (13:58)
[2020-06-08] MEDS ORDERED: ISOSORBIDE MONO60 MG PO (13:59)
[2020-06-08] MEDS ORDERED: NITR.4SL SL (13:59)
[2020-06-08] MEDS ORDERED: PANT40 PO (14:00)
[2020-06-08] MEDS ORDERED: TORSE20 PO (14:00)
== END 2020-04-18 18:50 | disposition left against medical advice (07) ==
LOC: ER 15:52
PROVIDERS: Physician Assistant
DX: R06.02 Shortness of breath (principal); Z53.21 Procedure and treatment not carried out due to patient leaving prior to being seen by health care provider
CPT/HCPCS: 71046; 80053; 85025; 99283

== ENCOUNTER 2020-06-11 09:57 | Inpatient (IN) | payer OTHER ==
[~2020-06-11] VITALS: Ht 180.3 cm; Wt 98.8 kg
[~2020-06-11 09:57] MED LIST changes: +ISOSORBIDE MONO60 MG PO; +TORSE20 PO
--- NOTE | 2020-06-11 12:50 | NUR ---
PT TO RECOVERY WAITING FOR PCU BED. PT DROWSY, BUT CONVERSING APPROPRIATELY; DENIES CHEST PAIN POST INTERVENTION. MONITOR AFIB 70-80'S, B/P 144/74, AFEBRILE, SPO2 93-906% RA. R RADIAL SITE NO SWELLING/HEMATOMA, TR BAND IN PLACE 12 CC AIR; POSITIVE PLEUTH RUE POST TR BAND PLACEMENT.
--- NOTE | 2020-06-11 18:03 | NUR ---
SHIFT SUMMARY: PT ADMIT FROM [facility], S/P ANGIOGRAM. PT ARRIVES WITH RT RADIAL ACCESS SITE, TR BAND INFLATED 12CC, CURRENTLY DEFLATED TO 0 CC AIR, TR BAND TO BE REMOVED SOON. PER REPORT, NO STENT PLACED, AN OLD STENT WAS BALLOONED. PT IS A&O, RESP EVEN AND UNLABORED ON ROOM AIR, AFIB ON MONITOR, PT DENIES CP, USES CALL LIGHT APPROPRIATELY. WILL CONTINUE TO MONITOR AND TREAT ACCORDINGLY UNTIL CHANGE OF SHIFT.
--- NOTE | 2020-06-11 19:51 | NUR ---
ASSUMED CARE PT ALERT AND ORIENTED. O2 SATS REMAIN ABOVE 90% ON RA, BP ELEVATED, BUT PT STATES "THAT HAPPENS AFTER I EAT". WILL RECHECK BP. HR AFIB IN THE 80'S. DENIES ANY PAIN. PT EDUCATED ON RIGHT ARM RESTRICTIONS S/P ANGIOGRAM. TEGADERM IN PLACE. NO BLEEDING OR HEMATOMA NOTED, BUT DIME SIZE BRUISE. PT REQUESTS HIS TRAZADONE EARLY. WILL CONTINUE TO MONITOR CLOSELY.
[2020-06-12 04:02] LABS: BASOPHILS ABSOLUTE AUTO 0.03 K/mm3 (0.00-0.23); BASOPHILS PERCENT AUTO 0 % (0-2); EOSINOPHILS PERCENT AUTO 1 % (0-6); Hematocrit 38.4 % (37.0-53.0); Hemoglobin 12.4 g/dL (13.5-17.5); IMMATURE GRAN ABSOLUTE AUTO 0.03 K/mm3 (0.00-0.10); IMMATURE GRAN PERCENT AUTO 0 % (0-1); LYMPHOCYTES ABSOLUTE AUTO 0.99 K/mm3 (0.84-5.20); LYMPHOCYTES PERCENT AUTO 11 % (21-46); MONOCYTES ABSOLUTE AUTO 1.08 K/mm3 (0.16-1.47); MONOCYTES PERCENT AUTO 12 % (4-13); Mean Corpuscular HGB 29.8 pg (26.0-34.0); Mean Corpuscular HGB Conc 32.3 g/dL (31.5-36.5); Mean Corpuscular Volume 92 fL (80-100); Mean Platelet Volume 10.7 fL (9.1-12.4); NEUTROPHILS ABSOLUTE AUTO 6.47 K/mm3 (1.96-9.15); NEUTROPHILS PERCENT AUTO 75 % (41-73); Platelet Count 135 K/mm3 (150-400); RDW Coefficient Variation 14.9 % (11.7-14.2); RDW Standard Deviation 50.2 fL (35.1-46.3); Red Blood Cell Count 4.16 M/mm3 (4.30-5.90)
[2020-06-12 04:16] LABS: Calcium, Blood 8.5 mg/dL (8.5-10.1); Creatinine, Blood 1.53 mg/dL (0.60-1.20); Potassium, Blood 4.1 mmol/L (3.5-5.5)
--- NOTE | 2020-06-12 05:03 | NUR ---
SHIFT SUMMARY PT REMAINS ALERT AND ORIENTED. VS STABLE. PT DENIES CP. PT SLEPT MOST OF SHIFT. RIGHT RADIAL SITE REMAINS WNL. PT ABLE TO AMBULATE TO BATHROOM INDEPENDENTLY THROUGH THE NIGHT. WILL CONTINUE TO MONITOR AND REPORT TO ONCOMING RN.
--- NOTE | 2020-06-12 10:07 | NUR ---
PT DISCHARGED TO HOME TODAY WITH DISCHARGE ORDERS, PT IS HERE FOR EXTENDED RECOVERY POST ANGIO WITH BALLOONING OF OLD STENT. RIGHT RADIAL ACCESS SITE WITH CLEAR DRESSING ON CDI NO SIGNS OF REDNESS OR INFECTION. VITALS HRR AFIB ON THE 90'S, BP SYSTOLIC ELEVATED AT 180'S, PT STATED HE HASNT TAKEN HIS BP MEDS IN 2 DAYS, ATENOLOL RESUMED TODAY, DENIES CHEST PAIN/PRESSURE. SATS ABOVE 95% ONRA, AFEBRILE. NO OTHER ISSUES REPORTED PRIOR TO DISCHARGE. DISCHARGE MEDICATION AND INSTRUCTION DISCLOSED WITH THE PT, PT VERBALIZED UNDERSTANDING. PT ACCOMPANIED BY PCT AMBUALTED FOR DISCHARGE.
== END 2020-06-12 10:08 | disposition home or self-care (01) | DRG 251 ==
LOC: MHTC 09:57 → PCU 12:49 → MHTC 13:02 → PCU 06-12 10:08
PROVIDERS: Internal Medicine Cardiovascular Disease; ADMIT Internal Medicine Cardiovascular Disease
PROC: 02703ZZ Dilation of Coronary Artery, One Artery, Percutaneous Approach (ICD-10-PCS; principal; 2020-06-11)
PROC: 4A023N7 Measurement of Cardiac Sampling and Pressure, Left Heart, Percutaneous Approach (ICD-10-PCS; 2020-06-11)
PROC: B2111ZZ Fluoroscopy of Multiple Coronary Arteries using Low Osmolar Contrast (ICD-10-PCS; 2020-06-11)
DX: T82.855A Stenosis of coronary artery stent, initial encounter (principal); I48.19 Other persistent atrial fibrillation; I50.32 Chronic diastolic (congestive) heart failure; R07.9 Chest pain, unspecified; I11.0 Hypertensive heart disease with heart failure; E78.5 Hyperlipidemia, unspecified; J44.9 Chronic obstructive pulmonary disease, unspecified; I25.10 Atherosclerotic heart disease of native coronary artery without angina pectoris; Z95.5 Presence of coronary angioplasty implant and graft; Z88.5 Allergy status to narcotic agent; Z79.01 Long term (current) use of anticoagulants; Z79.899 Other long term (current) drug therapy; Z86.73 Personal history of transient ischemic attack (TIA), and cerebral infarction without residual deficits; Z85.51 Personal history of malignant neoplasm of bladder; Y83.8 Other surgical procedures as the cause of abnormal reaction of the patient, or of later complication, without mention of misadventure at the time of the procedure
CPT/HCPCS: 36415; 76937; 80048; 85025; 85347; 92920; 92978; 93458; 99152; 99153; A9270; C1725; C1753; C1769; C1887; C1894; J0360; J0461; J1265; J1644; J2250; J2370; J3010; J7030; J7040; J7050; Q9967

== ENCOUNTER 2020-08-07 09:15 | Emergency (ER) | payer MEDICARE, OTHER ==
[~2020-08-07] VITALS: Ht 180.3 cm; Wt 90.7 kg
[2020-08-07 10:05] LABS: BASOPHILS ABSOLUTE AUTO 0.04 K/mm3 (0.00-0.23); BASOPHILS PERCENT AUTO 0 % (0-2); EOSINOPHILS ABSOLUTE AUTO 0.03 K/mm3 (0.00-0.68); EOSINOPHILS PERCENT AUTO 0 % (0-6); Hematocrit 42.9 % (37.0-53.0); Hemoglobin 13.9 g/dL (13.5-17.5); IMMATURE GRAN ABSOLUTE AUTO 0.03 K/mm3 (0.00-0.10); IMMATURE GRAN PERCENT AUTO 0 % (0-1); LYMPHOCYTES PERCENT AUTO 7 % (21-46); MONOCYTES ABSOLUTE AUTO 1.11 K/mm3 (0.16-1.47); MONOCYTES PERCENT AUTO 12 % (4-13); Mean Corpuscular HGB 29.2 pg (26.0-34.0); Mean Corpuscular HGB Conc 32.4 g/dL (31.5-36.5); Mean Corpuscular Volume 90 fL (80-100); Mean Platelet Volume 10.7 fL (9.1-12.4); NEUTROPHILS ABSOLUTE AUTO 7.53 K/mm3 (1.96-9.15); NEUTROPHILS PERCENT AUTO 80 % (41-73); Platelet Count 124 K/mm3 (150-400); RDW Coefficient Variation 15.8 % (11.7-14.2); RDW Standard Deviation 52.6 fL (35.1-46.3); Red Blood Cell Count 4.76 M/mm3 (4.30-5.90); White Blood Cell Count 9.44 K/mm3 (4.00-11.30)
[2020-08-07 10:09] LABS: Alanine Aminotransfer (ALT/SGP 20 U/L (12-78); Albumin, Blood 3.4 g/dL (3.4-5.0); Albumin/Globulin Ratio 0.8 (0.8-1.8); Alk Phos 116 U/L (50-136); Anion Gap 6 mmol/L (6-16); Aspartate Aminotrans (AST/SGOT 18 U/L (12-37); Bilirubin, Total 1.3 mg/dL (0.1-1.0); Blood Urea Nitrogen 22 mg/dL (8-24); Bun/Creatinine Ratio 15.4 (12.0-20.0); CO2, Blood 24 mmol/L (21-32); Calcium, Blood 8.9 mg/dL (8.5-10.1); Chloride, Blood 108 mmol/L (98-108); Creatinine, Blood 1.43 mg/dL (0.60-1.20); Globulin, Blood 4.4 g/dL (2.2-4.0); Glomerular Filtration Rate 51 (60-); Glucose, Blood 102 mg/dL (70-99); Potassium, Blood 4.2 mmol/L (3.5-5.5); Sodium, Blood 138 mmol/L (136-145); Total Protein, Blood 7.8 g/dL (6.4-8.2); Troponin I <0.015 ng/mL (0.000-0.040)
== END 2020-08-07 13:53 | disposition home or self-care (01) ==
LOC: ER 09:15
PROVIDERS: Emergency Medicine
DX: R07.9 Chest pain, unspecified (principal); I48.91 Unspecified atrial fibrillation; I25.10 Atherosclerotic heart disease of native coronary artery without angina pectoris; I25.2 Old myocardial infarction; F17.210 Nicotine dependence, cigarettes, uncomplicated; Z79.02 Long term (current) use of antithrombotics/antiplatelets; Z79.899 Other long term (current) drug therapy
CPT/HCPCS: 36415; 71046; 80053; 83690; 83880; 84484; 85025; 93005; 93010; 96374; 99285-25; J1940

== ENCOUNTER 2020-09-10 23:17 | Emergency (ER) | payer OTHER, MEDICARE ==
[~2020-09-10] VITALS: Ht 180.3 cm; Wt 90.7 kg
[2020-09-10 23:41] LABS: BASOPHILS ABSOLUTE AUTO 0.04 K/mm3 (0.00-0.23); BASOPHILS PERCENT AUTO 1 % (0-2); EOSINOPHILS ABSOLUTE AUTO 0.12 K/mm3 (0.00-0.68); EOSINOPHILS PERCENT AUTO 2 % (0-6); Hematocrit 45.4 % (37.0-53.0); Hemoglobin 14.9 g/dL (13.5-17.5); IMMATURE GRAN ABSOLUTE AUTO 0.04 K/mm3 (0.00-0.10); IMMATURE GRAN PERCENT AUTO 1 % (0-1); LYMPHOCYTES ABSOLUTE AUTO 1.21 K/mm3 (0.84-5.20); LYMPHOCYTES PERCENT AUTO 16 % (21-46); MONOCYTES ABSOLUTE AUTO 0.68 K/mm3 (0.16-1.47); MONOCYTES PERCENT AUTO 9 % (4-13); Mean Corpuscular HGB 29.6 pg (26.0-34.0); Mean Corpuscular HGB Conc 32.8 g/dL (31.5-36.5); Mean Corpuscular Volume 90 fL (80-100); Mean Platelet Volume 10.5 fL (9.1-12.4); NEUTROPHILS ABSOLUTE AUTO 5.48 K/mm3 (1.96-9.15); NEUTROPHILS PERCENT AUTO 72 % (41-73); Platelet Count 151 K/mm3 (150-400); RDW Coefficient Variation 15.7 % (11.7-14.2); RDW Standard Deviation 52.1 fL (35.1-46.3); Red Blood Cell Count 5.04 M/mm3 (4.30-5.90); White Blood Cell Count 7.57 K/mm3 (4.00-11.30)
[2020-09-11 00:03] LABS: Alanine Aminotransfer (ALT/SGP 23 U/L (12-78); Albumin, Blood 3.5 g/dL (3.4-5.0); Albumin/Globulin Ratio 0.8 (0.8-1.8); Alk Phos 135 U/L (50-136); Anion Gap 5 mmol/L (6-16); Aspartate Aminotrans (AST/SGOT 17 U/L (12-37); Bilirubin, Total 0.6 mg/dL (0.1-1.0); Blood Urea Nitrogen 24 mg/dL (8-24); Bun/Creatinine Ratio 14.9 (12.0-20.0); CO2, Blood 26 mmol/L (21-32); Calcium, Blood 9.2 mg/dL (8.5-10.1); Chloride, Blood 112 mmol/L (98-108); Creatinine, Blood 1.61 mg/dL (0.60-1.20); Globulin, Blood 4.5 g/dL (2.2-4.0); Glomerular Filtration Rate 45 (60-); Glucose, Blood 113 mg/dL (70-99); Potassium, Blood 4.1 mmol/L (3.5-5.5); Sodium, Blood 143 mmol/L (136-145); Troponin I <0.015 ng/mL (0.000-0.040)
== END 2020-09-11 01:25 | disposition home or self-care (01) ==
LOC: ER 23:17
PROVIDERS: Student in an Organized Health Care Education/Training Program
DX: I48.91 Unspecified atrial fibrillation (principal); F17.200 Nicotine dependence, unspecified, uncomplicated; Z79.01 Long term (current) use of anticoagulants; Z79.02 Long term (current) use of antithrombotics/antiplatelets; Z79.899 Other long term (current) drug therapy; Z88.5 Allergy status to narcotic agent; Z88.8 Allergy status to other drugs, medicaments and biological substances
CPT/HCPCS: 36415; 71046; 80053; 83690; 84484; 85025; 93005; 93010; 99285-25

== ENCOUNTER 2021-05-30 11:02 | Emergency (ER) | payer OTHER | END 2021-05-30 11:51 | disposition left against medical advice (07) | LOC: ER 11:02 | DX: Z53.21 Procedure and treatment not carried out due to patient leaving prior to being seen by health care provider (principal) ==

== ENCOUNTER 2022-06-16 08:18 | Emergency (ER) | payer OTHER ==
[~2022-06-16] VITALS: Ht 180.3 cm; Wt 90.7 kg
[2022-06-16 09:00] LABS: BASOPHILS ABSOLUTE AUTO 0.05 K/mm3 (0.00-0.23); BASOPHILS PERCENT AUTO 1 % (0-2); EOSINOPHILS ABSOLUTE AUTO 0.08 K/mm3 (0.00-0.68); EOSINOPHILS PERCENT AUTO 1 % (0-6); Hematocrit 41.4 % (37.0-53.0); Hemoglobin 13.7 g/dL (13.5-17.5); IMMATURE GRAN ABSOLUTE AUTO 0.02 K/mm3 (0.00-0.10); IMMATURE GRAN PERCENT AUTO 0 % (0-1); LYMPHOCYTES ABSOLUTE AUTO 0.86 K/mm3 (0.84-5.20); LYMPHOCYTES PERCENT AUTO 15 % (21-46); MONOCYTES ABSOLUTE AUTO 0.68 K/mm3 (0.16-1.47); MONOCYTES PERCENT AUTO 12 % (4-13); Mean Corpuscular HGB 31.5 pg (26.0-34.0); Mean Corpuscular HGB Conc 33.1 g/dL (31.5-36.5); Mean Corpuscular Volume 95 fL (80-100); Mean Platelet Volume 10.4 fL (9.1-12.4); NEUTROPHILS ABSOLUTE AUTO 4.19 K/mm3 (1.96-9.15); NEUTROPHILS PERCENT AUTO 71 % (41-73); Platelet Count 124 K/mm3 (150-400); RDW Coefficient Variation 15.1 % (11.7-14.2); RDW Standard Deviation 53.4 fL (35.1-46.3); Red Blood Cell Count 4.35 M/mm3 (4.30-5.90); White Blood Cell Count 5.88 K/mm3 (4.00-11.30)
[2022-06-16 09:26] LABS: Albumin, Blood 3.3 g/dL (3.4-5.0); Albumin/Globulin Ratio 0.8 (0.8-1.8); Bilirubin, Total 0.8 mg/dL (0.1-1.0); Calcium, Blood 9.2 mg/dL (8.5-10.1); Creatinine, Blood 1.59 mg/dL (0.60-1.20); Globulin, Blood 4.2 g/dL (2.2-4.0); Potassium, Blood 4.3 mmol/L (3.5-5.5); Total Protein, Blood 7.5 g/dL (6.4-8.2)
== END 2022-06-16 11:18 | disposition left against medical advice (07) ==
LOC: ER 08:18
PROVIDERS: Physician Assistant
DX: R07.9 Chest pain, unspecified (principal); I48.91 Unspecified atrial fibrillation; F17.200 Nicotine dependence, unspecified, uncomplicated; Z53.29 Procedure and treatment not carried out because of patient's decision for other reasons; Z91.030 Bee allergy status; Z88.5 Allergy status to narcotic agent; Z88.8 Allergy status to other drugs, medicaments and biological substances; Z79.899 Other long term (current) drug therapy; Z79.01 Long term (current) use of anticoagulants; Z79.02 Long term (current) use of antithrombotics/antiplatelets
CPT/HCPCS: 36415; 71046; 80053; 83690; 83880; 84484; 85025; 93005; 93010; 96360; 99284-25; A9270; J7030

== ENCOUNTER 2022-12-24 12:22 | Emergency (ER) | payer OTHER, MEDICARE ==
[~2022-12-24] VITALS: Ht 182.9 cm; Wt 86.2 kg
[~2022-12-24 12:22] MED LIST changes: +ALBU90OI INH
[2022-12-24 12:37] LABS: Bicarbonate Venous 27.5 mmol/L (24.0-30.0); PCO2 Venous 50.7 mmHg (38-42); pH Blood Venous 7.38 (7.34-7.37)
[2022-12-24 12:38] LABS: Base Excess Venous 4.6 mmol/L
[2022-12-24 12:41] LABS: BASOPHILS ABSOLUTE AUTO 0.04 K/mm3 (0.00-0.23); BASOPHILS PERCENT AUTO 1 % (0-2); EOSINOPHILS ABSOLUTE AUTO 0.04 K/mm3 (0.00-0.68); EOSINOPHILS PERCENT AUTO 1 % (0-6); Hematocrit 40.6 % (37.0-53.0); Hemoglobin 13.6 g/dL (13.5-17.5); IMMATURE GRAN ABSOLUTE AUTO 0.03 K/mm3 (0.00-0.10); IMMATURE GRAN PERCENT AUTO 1 % (0-1); LYMPHOCYTES ABSOLUTE AUTO 1.09 K/mm3 (0.84-5.20); LYMPHOCYTES PERCENT AUTO 17 % (21-46); MONOCYTES ABSOLUTE AUTO 0.89 K/mm3 (0.16-1.47); MONOCYTES PERCENT AUTO 14 % (4-13); Mean Corpuscular HGB 31.6 pg (26.0-34.0); Mean Corpuscular HGB Conc 33.5 g/dL (31.5-36.5); Mean Corpuscular Volume 94 fL (80-100); Mean Platelet Volume 10.1 fL (9.1-12.4); NEUTROPHILS ABSOLUTE AUTO 4.43 K/mm3 (1.96-9.15); NEUTROPHILS PERCENT AUTO 68 % (41-73); Platelet Count 143 K/mm3 (150-400); RDW Coefficient Variation 14.2 % (11.7-14.2); RDW Standard Deviation 49.7 fL (35.1-46.3); Red Blood Cell Count 4.31 M/mm3 (4.30-5.90); White Blood Cell Count 6.52 K/mm3 (4.00-11.30)
[2022-12-24 13:04] LABS: International Normalized Ratio 1.11; Prothrombin Time Results 11.6 Sec (9.7-11.5)
--- NOTE | 2022-12-24 13:09 | NUR ---
"Spiritual Care | Trauma Team Pt. is intubated and taken to the Oncology Research Rn. Pts. Daughter and Granddaughter are waiting outside for other family to arrive. Facilitate a life review and will continue to be available to the family. Family has moved into waiting room area."
[2022-12-24 13:10] LABS: Alanine Aminotransfer (ALT/SGP 26 U/L (12-78); Albumin/Globulin Ratio 0.7 (0.8-1.8); Alk Phos 110 U/L (50-136); Anion Gap 5 mmol/L (6-16); Aspartate Aminotrans (AST/SGOT 28 U/L (12-37); Bilirubin, Total 0.6 mg/dL (0.1-1.0); Blood Urea Nitrogen 38 mg/dL (8-24); Bun/Creatinine Ratio 17.8 (12.0-20.0); CO2, Blood 29 mmol/L (21-32); Calcium, Blood 8.3 mg/dL (8.5-10.1); Chloride, Blood 108 mmol/L (98-108); Creatinine, Blood 2.14 mg/dL (0.60-1.20); Ethanol (Alcohol), Blood, Med <3 mg/dL; Globulin, Blood 4.2 g/dL (2.2-4.0); Glomerular Filtration Rate 32 (60-); Glucose, Blood 181 mg/dL (70-99); Potassium, Blood 3.5 mmol/L (3.5-5.5); Sodium, Blood 142 mmol/L (136-145); Total Protein, Blood 7.2 g/dL (6.4-8.2)
[2022-12-24 13:53] LABS: U Amphetamine Screen Not Detected
[2022-12-24 13:54] LABS: U Barbituate Screen Not Detected; U Benzodiazapine Screen Not Detected; U Buprenorphine Screen Not Detected; U Cannabinoids Screen Not Detected; U Cocaine Screen Not Detected; U Methadone Screen Not Detected; U Methamphetamine Screen Not Detected; U Opiates Screen Not Detected; U Oxycodone Screen Not Detected; U Phencyclidine Screen Not Detected; U Propoxyphene Screen Not Detected
[2022-12-24 16:00] VITALS: BP 140/74
--- NOTE | 2022-12-24 17:22 | NUR ---
Spiritual Care Support. Was present with the family in the waiting perior and relocated the large group from the ED waiting room to the ICU waiting room where we prayed rashawn as a group. When the ED staff had completed cat scans and Pt. prep. this earth science laboratory technician managed Pt./family support. Scripture was read, and prayers were made with verious family members who came through the room. Stayed with family members until Pt. was Life flighted to [facility] in [place]. Family verbalized gratitude for the spiritual care support.
== END 2022-12-24 16:27 | disposition short-term general hospital (02) ==
LOC: ER 12:22
PROVIDERS: Emergency Medicine
DX: I63.311 Cerebral infarction due to thrombosis of right middle cerebral artery (principal); I63.321 Cerebral infarction due to thrombosis of right anterior cerebral artery; I63.031 Cerebral infarction due to thrombosis of right carotid artery; S22.41XA Multiple fractures of ribs, right side, initial encounter for closed fracture; V89.2XXA Person injured in unspecified motor-vehicle accident, traffic, initial encounter; N28.9 Disorder of kidney and ureter, unspecified; I48.91 Unspecified atrial fibrillation; F17.200 Nicotine dependence, unspecified, uncomplicated; Z79.01 Long term (current) use of anticoagulants; Z88.5 Allergy status to narcotic agent; Z88.8 Allergy status to other drugs, medicaments and biological substances; Z91.030 Bee allergy status; Z79.899 Other long term (current) drug therapy
CPT/HCPCS: 31720; 51702; 70450; 70496; 70498; 71045; 71260; 72125; 74177; 80053; 82803; 83690; 84484; 85025; 85610; 86850; 86900; 86901; 90471; 90702; 90715; 93005; 93010; 94002; 96361-59; 96374-59; 96375-59; 96376-59; 99291-25; 99292; G0390; J2405; J2704; J3010; J7030; J7050; Q3014; Q9967